=== PATIENT | male | born 2000 | race Caucasian/White ===

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

== ENCOUNTER 2023-01-05 21:08 | Emergency (ER) | payer SELFPAY ==
[2023-01-05 23:20] VITALS: BP 141/75; PULSE 79
[2023-01-05] MEDS ORDERED: Diphtheria,Pertussis(Acell),Tetanus Vaccine 0.5 ML Syringe IM ONE (23:38)
== END 2023-01-06 00:20 | disposition home or self-care (01) ==
LOC: JP.ED 21:08
DX: S51.832A Puncture wound without foreign body of left forearm, initial encounter (principal); Z23 Encounter for immunization; W29.4XXA Contact with nail gun, initial encounter
CPT/HCPCS: 73090-26-LT; 73090-LT; 90471; 90715; 99283; 99283-25

== ENCOUNTER 2023-07-30 11:01 | Emergency (ER) | payer OTHER ==
[2023-07-30 11:21] VITALS: BP 105/60; PULSE 74
== END 2023-07-30 13:41 | disposition home or self-care (01) ==
LOC: JP.ED 11:01
DX: S61.215A Laceration without foreign body of left ring finger without damage to nail, initial encounter (principal); W23.0XXA Caught, crushed, jammed, or pinched between moving objects, initial encounter; Y99.0 Civilian activity done for income or pay
CPT/HCPCS: 12001; 99282